=== PATIENT | male | born 1965 | race Caucasian/White ===

== ENCOUNTER 2017-04-14 07:27 | Outpatient (CLI) | payer MEDICAID ==
[2017-04-14 13:50] LABS: HEMOGLOBIN A1C 0.59 g/dL
== END 2017-04-14 07:28 | disposition home or self-care (01) ==
LOC: LAB.N 07:27
PROVIDERS: ATTEND Nurse Practitioner Gerontology
DX: E11.9 Type 2 diabetes mellitus without complications (principal)
CPT/HCPCS: 36415; 83036

== ENCOUNTER 2017-08-20 08:00 | Outpatient (CLI) | payer MEDICAID ==
[2017-08-20 19:03] LABS: BASOPHILS % (AUTO) 0.4 %; EOSINOPHILS # (AUTO) 0.2 10^3/uL (0.0-0.7); EOSINOPHILS % (AUTO) 1.9 %; LYMPHOCYTES # (AUTO) 1.7 10^3/uL (1.5-3.5); LYMPHOCYTES % (AUTO) 18.2 %; MEAN CORPUSCULAR HEMOGLOBIN 29.7 pg (27.0-31.0); MEAN CORPUSCULAR HGB CONC 34.1 g/dL (32.0-36.0); MEAN PLATELET VOLUME 8.1 fL (7.4-11.4); MONOCYTES # (AUTO) 0.6 10^3/uL (0.0-1.0); NEUTROPHILS # (AUTO) 6.9 10^3/uL (1.5-6.6); NEUTROPHILS % (AUTO) 73.5 %; RED CELL DISTRIBUTION WIDTH 13.7 % (12.0-15.0); UNCORRECTED WHITE BLOOD COUNT 9.3 x10^3/uL; WHITE BLOOD COUNT 9.3 x10^3/uL (4.8-10.8)
[2017-08-20 19:31] LABS: ALBUMIN/GLOBULIN RATIO 1.4 (1.0-2.2); BILIRUBIN,TOTAL 0.7 mg/dL (0.2-1.0); BUN - BLOOD UREA NITROGEN 6 mg/dL (6-20); CALCIUM 8.9 mg/dL (8.5-10.3); CARBON DIOXIDE - CO2 23 mmol/L (21-32); CHLORIDE 105 mmol/L (101-111); CHOL/HDL RATIO 5.3 (<5.0); CHOLESTEROL 192 mg/dL; GFR - MDRD 79 (>89); GLUCOSE 98 mg/dL (70-100); HDL CHOLESTEROL 36 mg/dL; LDL/HDL RATIO 3.3 (<3.6); POTASSIUM 3.7 mmol/L (3.5-5.0); SODIUM 139 mmol/L (135-145); TOTAL PROTEIN 7.3 g/dL (6.7-8.2); TRIGLYCERIDES 188 mg/dL; VLDL CHOLESTEROL 38 mg/dL
[2017-08-20 19:32] LABS: HEMOGLOBIN A1C 0.54 g/dL
== END 2017-08-20 08:01 | disposition home or self-care (01) ==
LOC: LAB.N 08:00
PROVIDERS: ATTEND Nurse Practitioner Gerontology
DX: E11.9 Type 2 diabetes mellitus without complications (principal); E66.01 Morbid (severe) obesity due to excess calories; I10 Essential (primary) hypertension; Z79.899 Other long term (current) drug therapy
CPT/HCPCS: 36415; 80053; 80061; 83036; 84443; 85025

== ENCOUNTER 2017-12-15 23:12 | Emergency (ER) | payer MEDICAID ==
[2017-12-15 23:37] LABS: BILIRUBIN,URINE NEGATIVE (NEGATIVE); GLUCOSE, URINE (UA) NEGATIVE (NEGATIVE); KETONES,URINE (UA) NEGATIVE (NEGATIVE); LEUKOCYTE ESTERASE, URINE SMALL (NEGATIVE); NITRITE,URINE NEGATIVE (NEGATIVE); OCCULT BLOOD,URINE LARGE (NEGATIVE); PROTEIN,URINE 30 mg/dL (NEGATIVE); UROBILINOGEN,URINE 0.2 (NORMAL) E.U./dL (NORMAL)
[2017-12-15 23:39] LABS: CLARITY,URINE HAZY (CLEAR)
[2017-12-15 23:43] LABS: BACTERIA,URINE Rare /HPF (None Seen); RBC,URINE TNTC /HPF (0-5); SQUAMOUS EPITHELIAL CELL,UR RARE Squamous (<= Few)
--- NOTE | 2017-12-16 01:22 | ED Physician Documentation ---
PD HPI MALE - Stated complaint Stated Complaint: MALE /BLOOD - Chief complaint Chief Complaint: UTI - History obtained from History obtained from: Patient - History of Present Illness Timing - onset: How many days ago (2-3) Timing - duration: Days Timing - details: Waxing and waning Pain level now: 3 Associated symptoms: Dysuria, Urinary frequency, Hematuria Recently seen: Not recently seen Review of Systems Constitutional: reports: Reviewed and negative Cardiac: reports: Reviewed and negative Respiratory: reports: Reviewed and negative GI: reports: Reviewed and negative : reports: Dysuria, Frequency, Hematuria. denies: Discharge Musculoskeletal: reports: Back pain (left flank/back) PD PAST MEDICAL HISTORY - Past Medical History Past Medical History: Yes Endocrine/Autoimmune: Type 2 diabetes Other Past Medical History: Neuropathy feet, sleep apnea - Past Surgical History Past Surgical History: Yes - Present Medications Home Medications: Ambulatory Orders Medication Instructions Recorded Confirmed Metformin HCl 1,000 mg PO BID 02/21/14 02/21/14 Mometasone Furoate [Nasonex] 17 gm NS 02/21/14 02/21/14 Amitriptyline [Elavil] 25 mg PO DAILY 12/15/17 12/15/17 DULoxetine [Cymbalta] 60 mg PO DAILY 12/15/17 12/15/17 Ciprofloxacin HCl [Cipro] 500 mg PO BID #13 tablet 12/16/17 Phenazopyridine [Pyridium] 200 mg PO TID 3 Days tablet 12/16/17 - Allergies Allergies/Adverse Reactions: Allergies Allergy/AdvReac Type Severity Reaction Status Date / Time Sulfa (Sulfonamide Allergy Unknown Verified 12/15/17 23:26 Antibiotics) - Social History Does the pt smoke?: No Smoking Status: Never smoker Does the pt drink ETOH?: No Does the pt have substance abuse?: No - Immunizations Immunizations are current?: Yes - POLST Patient has POLST: No PD ED PE NORMAL - Vitals Vital signs reviewed: Yes - General General: Alert and oriented X 3, No acute distress, Well developed/nourished - Cardiac Cardiac: RRR, No murmur, No gallop, No rub - Respiratory Respiratory: No respiratory distress, Clear bilaterally - Abdomen Abdomen: Normal bowel sounds, Soft, Non tender, Non distended - Back Back: No CVA TTP - Derm Derm: No rash - Extremities Extremities: No edema Results - Vitals Vitals: Vital Signs - 24 hr 12/16/17 01:52 Heart Rate 78 Respiratory 16 Rate Blood Pressure 134/76 H O2 Saturation 94 Oxygen O2 Source Room air - Labs Labs: Microbiology 12/15/17 23:29 Urine Culture - Preliminary Urine,Clean Catch CULTURE IN PROGRESS. RESULTS TO FOLLOW. Laboratory Tests 12/15/17 23:29 Urine Color YELLOW Urine Clarity HAZY Urine pH 6.0 Ur Specific [place] 1.020 Urine Protein 30 H Urine Glucose (UA) NEGATIVE Urine Ketones NEGATIVE Urine Occult Blood LARGE H Urine Nitrite NEGATIVE Urine Bilirubin NEGATIVE Urine Urobilinogen 0.2 (NORMAL) Ur Leukocyte Esterase SMALL H Urine RBC TNTC H Urine WBC >25 H Ur Squamous Epith Cells RARE Squamous Urine Bacteria Rare Ur Microscopic Review INDICATED Urine Culture Comments INDICATED PD MEDICAL DECISION MAKING - ED course Complexity details: reviewed results, re-evaluated patient, considered differential, d/w patient Departure - Departure Disposition: 01 Home, Self Care Clinical Impression: Urinary tract infection Condition: Good Instructions: ED UTI Cystitis Male Follow-Up: Pilar Townsend ARNP [Primary Care Provider] - (3-4 days if symptoms have not improved or resolved) Prescriptions: Ciprofloxacin HCl [Cipro] 500 mg PO BID #13 tablet Phenazopyridine [Pyridium] 200 mg PO TID 3 Days tablet Discharge Date/Time: 12/16/17 01:51
[2017-12-16] MEDS ORDERED: CIPROFLOXACIN 250 MG TABLET PO STA (01:39)
[2017-12-16] MEDS ORDERED: PHENAZOPYRIDINE 100 MG TABLET PO STA (01:40)
[2017-12-16 01:52] VITALS: BP 134/76
== END 2017-12-16 01:51 | disposition home or self-care (01) ==
LOC: ED 23:12
DX: N39.0 Urinary tract infection, site not specified (principal); E11.40 Type 2 diabetes mellitus with diabetic neuropathy, unspecified; Z79.84 Long term (current) use of oral hypoglycemic drugs
CPT/HCPCS: 81001; 87086; 99283; A9270; 81003; 87077

== ENCOUNTER 2018-04-19 08:00 | Outpatient (CLI) | END 2018-04-19 08:01 | disposition home or self-care (01) ==

== ENCOUNTER 2019-03-12 15:02 | Outpatient (CLI) | payer MEDICAID ==
--- NOTE | 2019-03-14 12:33 | Ultrasound Report ---
Reason: PVD Procedure Date: 03/12/2019 Accession Number: [id number] / [id number] Procedure: US - Duplex Ext Veins Bilateral CPT Code: FULL RESULT: EXAM: BILATERAL LOWER EXTREMITY VENOUS ULTRASOUND EXAM DATE: 03/12/2019 05:06 PM. CLINICAL HISTORY: Peripheral vascular disease. COMPARISON: None. TECHNIQUE: Real-time sonographic vascular imaging was performed by the parcel post order clerk through the lower extremities utilizing both color-flow and Doppler spectral analysis. Multiple business services representative static images were saved for review. FINDINGS: Right: Common Femoral Vein (CFV): Normal. CFV-GSV Junction: Normal. Profunda Femoral Vein (PFV): Normal. Femoral Vein (FV) Prox: Normal. Femoral Vein (FV) Mid: Normal. Femoral Vein (FV) Dist: Normal. Popliteal Vein: Normal. Posterior Tibial Veins: Normal. Peroneal Veins: Normal. Left: Common Femoral Vein (CFV): Normal. CFV-GSV Junction: Normal. Profunda Femoral Vein (PFV): Normal. Femoral Vein (FV) Prox: Normal. Femoral Vein (FV) Mid: Normal. Femoral Vein (FV) Dist: Normal. Popliteal Vein: Normal. Posterior Tibial Veins: Normal. Peroneal Veins: Normal. Other: None. IMPRESSION: No evidence for deep venous thrombosis bilaterally. RADIA
--- NOTE | 2019-03-14 12:42 | Ultrasound Report ---
Reason: PVD Procedure Date: 03/12/2019 Accession Number: [id number] / [id number] Procedure: US - Duplex Lwr Ext Arterial Bilat CPT Code: FULL RESULT: EXAM: Bilateral Lower Extremity Arterial Doppler Ultrasound EXAM DATE: 03/12/2019 05:44 PM. CLINICAL HISTORY: History of peripheral vascular disease and diabetes. COMPARISON: None. TECHNIQUE: Real-time sonographic vascular imaging was performed by the owner/operator, utilizing color-flow, Doppler flow, and spectral analysis. Multiple risk control representative static images were saved for review. FINDINGS: No significant plaque demonstrated on grayscale images of right or left common femoral arteries. Right Lower Extremity: INVESTOR RELATIONS SPECIALIST: PSV 78 cm/sec. Triphasic waveform. PSFA: PSV 78 cm/sec. Triphasic waveform. MSFA: PSV 61 cm/sec. Triphasic waveform. DSFA: PSV 49 cm/sec. Triphasic waveform. PFA: PSV 55 cm/sec. Biphasic waveform. POP: PSV 49 cm/sec. Triphasic waveform. EDWARD: PSV 54 cm/sec. Triphasic waveform. CARTON LINER: PSV 58 cm/sec. Triphasic waveform. CAROLYN: PSV 57 cm/sec. Triphasic waveform. DPA: PSV 52 cm/sec. Triphasic waveform. Left Lower Extremity: INVESTOR RELATIONS SPECIALIST: PSV 64 cm/sec. Triphasic waveform. PSFA: PSV 72 cm/sec. Triphasic waveform. MSFA: PSV 64 cm/sec. Triphasic waveform. DSFA: PSV 53 cm/sec. Triphasic waveform. PFA: PSV 46 cm/sec. Biphasic waveform. POP: PSV 47 cm/sec. Triphasic waveform. EDWARD: PSV 48 cm/sec. Triphasic waveform. CARTON LINER: PSV 57 cm/sec. Triphasic waveform. CAROLYN: PSV 63 cm/sec. Triphasic waveform. DPA: PSV 54 cm/sec. Triphasic waveform. IMPRESSION: 1. No hemodynamic significant stenosis within right or left lower extremity arteries. RADIA
== END 2019-03-12 15:03 | disposition home or self-care (01) ==
LOC: DI 15:02
PROVIDERS: ATTEND Nurse Practitioner Gerontology
DX: I73.9 Peripheral vascular disease, unspecified (principal)
CPT/HCPCS: 93925; 93970

== ENCOUNTER 2019-04-25 09:26 | Outpatient (CLI) | payer MEDICAID | END 2019-04-25 09:27 | disposition home or self-care (01) | LOC: SC 09:26 | PROVIDERS: ATTEND Internal Medicine Pulmonary Disease | DX: G47.33 Obstructive sleep apnea (adult) (pediatric) (principal) | CPT/HCPCS: 99203; 99212 ==

== ENCOUNTER 2019-09-29 13:02 | Outpatient (CLI) | payer MEDICAID ==
[2019-09-29 14:11] VITALS: BP 126/80
--- NOTE | 2019-09-29 14:11 | SLEEP CARE CONSULTATION ---
Information from patient questionnaire entered by Betty Gonzalez. I have reviewed and concur with the information entered by Betty Gonzalez. This document represents the service I personally performed and the decisions made by me, Zuleyma Green, RN, MSN, MAITRE D'. History of Present Illness Previous diagnosis: Severe, Obstructive Sleep Apnea-Hypopnea Syndrome AHI: 58.2 Reason for follow up: first compliance after device update Equipment type: CPAP Equipment obtained from: [facility] Mask style: Nasal pillows Mask brand: Resmed Backup mask available: No (keep current mask when replaced as a spare ) Last cushion change: several months Prior sleep studies: Yes CPAP Compliance Data - Data Reviewed with Patient Average duration of nightly device use: 10h 47m Compliance rate %: 100 (initial period and 97% recent) Current pressure setting (cmH2O): 7-10 Humidity setting: off Heated hose setting: zero Average residual AHI: 1.2 Subjective Patient concerns: reports: other (headache - rare when mask leaks alot ). denies: aerophagia, mask discomfort, air blowing in eyes, mask leak noise, condensation in mask/hose, nasal congestion, dry mouth, nose, throat, epistaxis Observed to snore while using device: No Current pressure setting perceived as: comfortable On therapy, patient: reports: sleeping better (can not sleep without ), awakening more refreshed, being more awake and alert during the day, more rested overall (however pain medication and neuropathy make him tired mid day and requires nap ). denies: drowsiness while driving Initial [place] Sleepiness Scale score: 24 Current [place] Sleepiness Scale score: 9 Allergies and Home Medications Known drug allergies: Yes (sulfa) Home medication list reviewed: Yes Allergy and home medication list: Medication Name (generic/name brand) Strength & Dosage Cymbalta (Duloxetine HCL) 60mg cap one daily amitriptyline 25mg cap one daily at bedtime Flonase 2 sprays daily Allergy List Sulfa Physical Exam Blood Pressure: 126/80 Cuff size: long Heart Rate: 85 O2 Saturation: 97 Height: 5 ft 9.75 in Weight: 323 lb 6.4 oz Body Mass Index: 46.7 BMI Classification: Obesity Class 3 Impression and Plan 1. Obstructive Sleep Apnea-Hypopnea Syndrome, severe, with good treatment compliance and good apnea control. On CPAP therapy, the patient has better sleep quality and is more rested overall. Patient has gained weight, his current BMI is 46 morbid obesity. I counseled him how his weight affects his apnea risk and CPAP pressure and increases his overall health risks. He is advised to lose weight. Weight can be reduced with diet modification of healthy content and smaller portions. There are also programs such as Weight watchers that assist people to lose weight with a food tracking system, education and support group. He can also discuss a diet consult with PCP. If significant weight loss achieved his current autopressure will accomodate some as he is using top pressure range. Symptoms to report for pressure adjustment discussed. Patient's apnea severity and rationale for treatment to reduce apnea, improve sleep quality and reduce cardiovascular and cerebrovascular events was reviewed. I also reviewed the benefit of consistent device use of CPAP for hypertension, diabetes, depression/anxiety. Patient CPAP use is about an hour longer than average sleep range of 7-9 hours at 9.75 hours. He reports this is due to needing naps due to medications for his neuropathy or fatigue from pain. If sleep need increases he is advised to follow up with PCP for further evaluation with rationale discussed. * * Continue CPAP pressure at 7-11 cmH2O * Notify me if snoring with mask or feeling that the pressure is too much or too little * Attempt to lose weight * Return for follow up in 1 year , or sooner if concerns arise I spent 100% of this 25 minute visit face to face with the patient with greater than 50% of this was spent time counseling the patient and coordination of care.
== END 2019-09-29 13:03 | disposition home or self-care (01) ==
LOC: SC 13:02
PROVIDERS: ATTEND Nurse Practitioner Family
DX: G47.33 Obstructive sleep apnea (adult) (pediatric) (principal); E66.01 Morbid (severe) obesity due to excess calories; Z68.42 Body mass index [BMI] 45.0-49.9, adult
CPT/HCPCS: 99212; 99214